=== PATIENT | male | born 1990 | race Hispanic/Latino ===

== ENCOUNTER 2018-08-24 03:32 | Emergency (ER) | payer OTHER ==
[2018-08-24] MEDS ORDERED: TETANUS/DIPHTHERIA TOXOID [ADULT] 0.5 ML VIAL IM ONE (03:54)
[2018-08-24] MEDS ORDERED: LIDOCAINE HCL 1% 20 ML VIAL ONE (04:31)
== END 2018-08-24 06:42 | disposition home or self-care (01) ==
LOC: EDH 03:32
DX: S51.011A Laceration without foreign body of right elbow, initial encounter (principal); S31.119A Laceration without foreign body of abdominal wall, unspecified quadrant without penetration into peritoneal cavity, initial encounter; W01.118A Fall on same level from slipping, tripping and stumbling with subsequent striking against other sharp object, initial encounter; Y93.G3 Activity, cooking and baking; Y92.89 Other specified places as the place of occurrence of the external cause; Y99.8 Other external cause status
CPT/HCPCS: 12004; 90471; 90714